=== PATIENT | male | born 1940 | race Caucasian/White ===

== ENCOUNTER 2021-10-16 06:59 | Emergency (ER) | payer MEDICARE, MEDICAID ==
[~2021-10-16] VITALS: Ht 167.6 cm; Wt 107.0 kg
[2021-10-16] MEDS ORDERED: KETOROLAC 60MG/2ML VIAL IM ONE (08:30)
[2021-10-16] MEDS ORDERED: CYCL10TA7 MT (10:03)
[2021-10-16] MEDS ORDERED: IBUP-2029 MT (10:03)
[2021-10-16 10:25] VITALS: BP 150/80
== END 2021-10-16 10:30 | disposition home or self-care (01) ==
LOC: ER 06:59
DX: R51.9 Headache, unspecified (principal); M54.12 Radiculopathy, cervical region; J45.909 Unspecified asthma, uncomplicated; E11.9 Type 2 diabetes mellitus without complications; I10 Essential (primary) hypertension; Z95.0 Presence of cardiac pacemaker
CPT/HCPCS: 70450; 72125; 96372; 99284; J1885